=== PATIENT | female | born 1965 | race Caucasian/White ===

== ENCOUNTER 2018-01-12 07:32 | Emergency (ER) | payer BC ==
[2018-01-12] MEDS ORDERED: KETOROLAC 30 MG/ML INJ ONE (08:15)
--- NOTE | 2018-01-12 10:10 | RAD REPORT ---
EXAM DESCRIPTION: RAD - Knee Left 3 View - 01/12/2018 8:56 am CLINICAL HISTORY: Slip and fall, left knee pain COMPARISON: None. FINDINGS: There is a transverse fracture present involving the distal patella. No distraction. Quadr iceps tendon insertion to the patella is normal. Patella tendon is poorly defined. Partial tear the p atella is possible. There is no superior displacement of the patella to suspect a full-thickness living[place] lla tendon tear.Trace joint effusion present. No joint space narrowing. No air or foreign body in the soft tissues. IMPRESSION: Transverse fracture of the inferior aspect of the patella without distraction or angulat ion. Poorly defined patella tendon. Patella tendon injury is suspected. Clinical concerns for internal derangement or occult bony injury could be further assessed with MR im aging.
--- NOTE | 2018-01-12 10:39 | ER ---
Nurse's Notes [facility] Name: Sue Gill Age: 52 yrs Sex: Female : 1965 Arrival Date: 01/12/2018 Time: 07:36 Bed 14 Private MD: Oscar Brooks E Diagnosis: Fracture of patella Presentation: 01/12 07:49 Presenting complaint: Patient states: was exercising this morning and slipped in mud, em c/o left knee pain, pain with movement. Transition of care: patient was not received from another setting of care. Onset of symptoms was January 12, 2018. Risk Assessment: Do you want to hurt yourself or someone else? Patient reports no desire to harm self or others. Initial Sepsis Screen: Does the patient meet any 2 criteria? No. Patient's initial sepsis screen is negative. Does the patient have a suspected source of infection? No. Patient's initial sepsis screen is negative. Care prior to arrival: None. 07:49 Method Of Arrival: Ambulatory em 08:28 Acuity: YANICK 4 iw Triage Assessment: 07:53 General: Appears in no apparent distress. uncomfortable, Behavior is calm, cooperative. em Pain: Complains of pain in left knee Pain currently is 0 out of 10 on a pain scale. 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 - Social history:: Smoking status: Patient/guardian denies using tobacco. - Ebola Screening: : Patient negative for fever greater than or equal to 101.5 degrees Fahrenheit, and additional compatible Ebola Virus Disease symptoms Patient denies exposure to infectious person Patient denies travel to an Ebola-affected area in the 21 days before illness onset. Screenin:49 Abuse screen: Denies threats or abuse. Denies injuries from another. Nutritional iw screening: No deficits noted. Tuberculosis screening: No symptoms or risk factors identified. Fall Risk None identified. Assessment: 07:53 General: Appears in no apparent distress. uncomfortable, Behavior is calm, cooperative. em Pain: Complains of pain in left knee. Neuro: Level of Consciousness is awake, alert, obeys commands, Oriented to person, place, time, situation. Cardiovascular: Capillary refill < 3 seconds Patient's skin is warm and dry. Respiratory: Airway is patent Respiratory effort is even, unlabored, Respiratory pattern is regular, symmetrical. GI: No signs and/or symptoms were reported involving the gastrointestinal system. : No signs and/or symptoms were reported regarding the genitourinary system. EENT: No signs and/or symptoms were reported regarding the EENT system. Derm: Skin is intact, Skin is pink, warm \T\ dry. Musculoskeletal: Range of motion: limited in left knee. Injury Description: slip injury. 08:10 Reassessment: Patient appears in no apparent distress at this time. I agree with above iw assessment by Jan Valerio. Braydon. 09:34 Reassessment: Patient appears in no apparent distress at this time. Patient and/or em family updated on plan of care and expected duration. Pain level reassessed. Patient is alert, oriented x 3, equal unlabored respirations, skin warm/dry/pink. 10:36 Reassessment: Patient appears in no apparent distress at this time. Patient and/or em family updated on plan of care and expected duration. Pain level reassessed. Patient is alert, oriented x 3, equal unlabored respirations, skin warm/dry/pink. Vital Signs: 07:53 BP 123 / 61; Pulse 87; Resp 18; Pulse Ox 98% on R/A; Weight 82.1 kg; Height 5 ft. 9 in. em (175.26 cm); Pain 0/10; 07:53 Body Mass Index 26.73 (82.10 kg, 175.26 cm) em ED Course: 07:36 Patient arrived in ED. sb2 07:37 Oscar Brooks MD is Private Physician. sb2 07:37 Efrem Oconnor MD is Attending Physician. kdr 07:43 Sebastian Maynard PA is PHCP. jmm 07:49 Jan Valerio LVN is Primary Nurse. em 07:53 Arm band placed on. em 08:28 Triage completed. iw 08:29 X-ray completed. Portable x-ray completed in exam room. Patient tolerated procedure jb2 well. 08:57 Knee Left 3 View XRAY In Process Unspecified. EDMS 10:37 No provider procedures requiring assistance completed. Patient did not have IV access em during this emergency room visit. Crutch training done. Knee immobilizer applied on left knee. 10:38 Fritz Weinberg MD is Referral Physician. [facility] 10:49 Patient has correct armband on for positive identification. iw Administered Medications: 08:39 Drug: Ketorolac 30 mg Route: IM; Site: right deltoid; em 10:35 Follow up: Response: No adverse reaction; Pain is decreased em Outcome: 10:38 Discharge ordered by MD. [facility] 10:49 Discharged to home ambulatory, with crutches. iw 10:49 Condition: good 10:49 Discharge instructions given to patient, Instructed on discharge instructions, follow iw up and referral plans. medication usage, Demonstrated understanding of instructions, follow-up care, medications. 10:49 Prescriptions given X 1. iw 10:50 Patient left the ED. iw Signatures: Dispatcher [employer] EDEfrem Alamo MD MD kdr Mickail, Joel, PA PA Bam Narayanan jb2 Jan Valerio, SURVEY COORDINATOR SURVEY COORDINATOR em Effie Diggs, BRENDA RN iw Denise Owens sb2
--- NOTE | 2018-01-12 10:39 | EDPHYS ---
Physician Documentation [facility] Name: Sue Gill Age: 52 yrs Sex: Female : 1965 Arrival Date: 01/12/2018 Time: 07:36 Bed 14 Private MD: Oscar Brooks E ED Physician Efrem Oconnor HPI: 01/12 08:01 This 52 yrs old Female presents to ER via Ambulatory with complaints of Fall jmm Injury - KNEE. 08:01 Details of fall: The patient fell from an upright position, while running. Onset: The jmm symptoms/episode began/occurred acutely, just prior to arrival. Associated injuries: The patient sustained knee. This is a 52 yea old female with no chronic medical conditions that presents to the ED with left knee pain after slipping and twisting her knee . Patient complains of pain on weight bearing. . 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 - Social history:: Smoking status: Patient/guardian denies using tobacco. - Ebola Screening: : Patient negative for fever greater than or equal to 101.5 degrees Fahrenheit, and additional compatible Ebola Virus Disease symptoms Patient denies exposure to infectious person Patient denies travel to an Ebola-affected area in the 21 days before illness onset. ROS: 08:01 Constitutional: Negative for fever, chills, and weight loss, Eyes: Negative for injury, jmm pain, redness, and discharge, ENT: Negative for injury, pain, and discharge, Neck: Negative for injury, pain, and swelling, Cardiovascular: Negative for chest pain, palpitations, and edema, Respiratory: Negative for shortness of breath, cough, wheezing, and pleuritic chest pain. 08:01 Skin: Negative for injury, rash, and discoloration, Neuro: Negative for headache, jmm weakness, numbness, tingling, and seizure. 08:01 MS/extremity: Positive for injury or acute deformity. 08:01 All other systems are negative. Exam: 08:01 Head/Face: atraumatic. Chest/axilla: Normal chest wall appearance and motion. jmm Cardiovascular: Regular rate and rhythm. No edema appreciated Respiratory: Normal respirations, no respiratory distress appreciated 08:01 Constitutional: The patient appears in no acute distress, alert, awake. 08:01 Musculoskeletal/extremity: ROM: painful ROM noted to the left knee, compartments are soft, NVI, full distal dorsalis pulse, . 08:01 Skin: abrasion noted to the left knee and left ankle. 08:01 Neuro: Orientation: is normal, Mentation: is normal, Memory: is normal. 08:01 Psych: Behavior/mood is pleasant, cooperative. Vital Signs: 07:53 BP 123 / 61; Pulse 87; Resp 18; Pulse Ox 98% on R/A; Weight 82.1 kg; Height 5 ft. 9 in. em (175.26 cm); Pain 0/10; 07:53 Body Mass Index 26.73 (82.10 kg, 175.26 cm) em Procedures: 10:13 Splinting: Splint applied to left knee using knee immobilizer, Examined by me, post [facility] splint application: neurovascular intact, 2+ distal pulses palpable, brisk capillary refill noted, Patient tolerated well. MDM: 08:00 Patient medically screened. [facility] 10:26 Data reviewed: vital signs, nurses notes, radiologic studies, plain films. Counseling: [facility] I had a detailed discussion with the patient and/or guardian regarding: the historical points, exam findings, and any diagnostic results supporting the discharge/admit diagnosis, the need for outpatient follow up, to return to the emergency department if symptoms worsen or persist or if there are any questions or concerns that arise at home. 01/12 07:54 Order name: Knee Left 3 View XRAY; Complete Time: 10:13 [facility] 01/12 10:13 Order name: Knee Immobilizer; Complete Time: 10:35 [facility] Administered Medications: 08:39 Drug: Ketorolac 30 mg Route: IM; Site: right deltoid; em 10:35 Follow up: Response: No adverse reaction; Pain is decreased em Disposition: 16:32 Co-signature as Attending Physician, Efrem Oconnor MD I agree with the assessment and kdr plan of care. Disposition: 01/12/18 10:38 Discharged to Home. Impression: Fracture of patella. - Condition is Stable. - Discharge Instructions: Patellar Fracture, Adult. - Prescriptions for Ultracet 37.5- 325 mg Oral Tablet - take 1 tablet by ORAL route every 6 hours - for up to 5 days; do not exceed 8 tablets per day.; 20 tablet. - Medication Reconciliation Form, Thank You Letter, Antibiotic Education, Prescription Opioid Use form. - Follow up: Fritz Weinberg MD; When: As needed; Reason: Recheck today's complaints, Continuance of care, Re-evaluation by your physician. Signatures: Dispatcher [employer] Efrem Alvarez MD MD kdr Mickail, Joel, PA PA Jan Chahal, RESOLUTION EXPERT RESOLUTION EXPERT em Effie Diggs, RN RN iw Corrections: (The following items were deleted from the chart) 10:35 10:13 Crutches ordered. angie 10:50 10:38 01/12/2018 10:38 Discharged to Home. Impression: Fracture of patella. Condition iw is Stable. Forms are Medication Reconciliation Form, Thank You Letter, Antibiotic Education, Prescription Opioid Use. Follow up: Dr. Fritz Weinberg; When: As needed; Reason: Recheck today's complaints, Continuance of care, Re-evaluation by your physician. [facility]
[2018-01-12 10:59] VITALS: BP 123/61; O2SAT 98
== END 2018-01-12 10:50 | disposition home or self-care (01) ==
LOC: ER 07:32
DX: S82.002A Unspecified fracture of left patella, initial encounter for closed fracture (principal); W01.0XXA Fall on same level from slipping, tripping and stumbling without subsequent striking against object, initial encounter; Y93.02 Activity, running; Y92.9 Unspecified place or not applicable
CPT/HCPCS: 96372; 99283